=== PATIENT | female | born 1975 | race Caucasian/White ===

== ENCOUNTER 2017-06-24 13:52 | Emergency (ER) | payer BC ==
[2017-06-24 14:12] VITALS: BP 142/63
--- NOTE | 2017-06-24 14:43 | EDM.PDOC ---
ED HPI GENERAL MEDICAL PROBLEM - General Chief Complaint: ENT Problem Stated Complaint: PAIN IN BOTH EARS Time Seen by Provider: 06/24/17 14:09 Source of Information: Reports: Patient History Limitations: Reports: No Limitations - History of Present Illness INITIAL COMMENTS - FREE TEXT/NARRATIVE: History of present illness: []Patient was seen in [facility] last week for severe ear pain and dizziness. She was treated with antibiotics and meclizine for vertigo and told to follow-up with ENT. She called Dr. Moseley's office this morning and was told to get a hearing test first before being. Patient's ear pain and vertigo continues. Review of systems: As per history of present illness and below otherwise all systems reviewed and negative. Past medical history: As per history of present illness and as reviewed below otherwise noncontributory. Surgical history: As per history of present illness and as reviewed below otherwise noncontributory. Social history: No reported history of drug or alcohol abuse. Family history: As per history of present illness and as reviewed below otherwise noncontributory. Physical exam: General: Well developed, well nourished in NAD HEENT: Atraumatic, normocephalic, pupils reactive, negative for conjunctival pallor or scleral icterus, mucous membranes moist, throat clear, neck supple, nontender, trachea midline. Left TM with perforation without erythema or blood, right TM normal there is clear fluid with bubbles noted behind both TMs. Lungs: Clear to auscultation, breath sounds equal bilaterally, chest nontender. Heart: S1S2, regular, negative for clicks, rubs, or JVD. Abdomen: Soft, nondistended, nontender. Negative for masses or hepatosplenomegaly. Negative for costovertebral tenderness. Pelvis: Stable nontender. Genitourinary: Deferred. Rectal: Deferred. Extremities: Atraumatic, negative for cords or calf pain. Neurovascular unremarkable. Neuro: Awake, alert, oriented. Cranial nerves II through XII unremarkable. Cerebellum unremarkable. Motor and sensory unremarkable throughout. Exam nonfocal. Diagnostics: [] Therapeutics: [] Impression: []Perforation TM on left Plan: []Flonase, Sudafed, continue meclizine for vertigo return if symptoms worsen or change or follow-up with PMD Definitive disposition and diagnosis as appropriate pending reevaluation and review of above. Ear Pain Score (Numeric/FACES): 10 - Related Data Allergies Allergy/AdvReac Type Severity Reaction Status Date / Time No Known Allergies Allergy Verified 06/24/17 14:12 Home Meds: Home Meds Amoxicillin [Amoxil] 1,000 mg PO TID 06/24/17 [History] Fluticasone Propionate [Flonase] 0 gm NASBOTH DAILY #1 bottle 06/24/17 [Rx] Meclizine [Antivert] 12.5 mg PO TID 06/24/17 [History] Ofloxacin [Floxin 0.3% Otic Soln] 5 drop EARBOTH BID 06/24/17 [History] Pseudoephedrine [Sudogest] 30 mg PO Q6H PRN #20 tablet 06/24/17 [Rx] Past Medical History - Past Health History Medical/Surgical History: Denies Medical/Surgical History Genitourinary History: Reports: None [employer] History: Reports: Musculoskeletal History: Reports: Back Pain, Chronic Other Musculoskeletal History: herniated disc Neurological History: Reports: Vertigo - Infectious Disease History Infectious Disease History: Reports: Chicken Pox - Past Surgical History HEENT Surgical History: Reports: Adenoidectomy, Myringotomy w Tube(s) Female Surgical History: Reports: Section Musculoskeletal Surgical History: Reports: None Social & Family History - Family History Family Medical History: Noncontributory - Tobacco Use Smoking Status *Q: Never Smoker Second Hand Smoke Exposure: No - Caffeine Use Caffeine Use: Reports: Coffee, Tea Caffeine Use Comment: at least 1-2drinks each/day - Recreational Drug Use Recreational Drug Use: No ED ROS ENT - Review of Systems Review Of Systems: See Below (See history of present illness) ED EXAM, ENT - Physical Exam Exam: See Below (See history of present illness) Course - Vital Signs Last Recorded V/S: Last Vital Signs Temp 36.8 C 06/24/17 14:09 Pulse 91 06/24/17 14:09 Resp 18 06/24/17 14:09 BP 142/63 H 06/24/17 14:09 Pulse Ox 99 06/24/17 14:09 Departure - Departure Time of Disposition: 14:43 Disposition: Home, Self-Care 01 Condition: Good Clinical Impression: Vertigo Ear pain Qualifiers: Laterality: bilateral Qualified Code(s): H92.03 - Otalgia, bilateral - Discharge Information Prescriptions: Fluticasone Propionate [Flonase] 0 gm NASBOTH DAILY #1 bottle Pseudoephedrine [Sudogest] 30 mg PO Q6H PRN #20 tablet PRN Reason: Congestion Referrals: PCP,None [Primary Care Provider] - Forms: ED Department Discharge Additional Instructions: The following information is given to patients seen in the emergency department who are being discharged to home. This information is to outline your options for follow-up care. We provide all patients seen in our emergency department with a follow-up referral. The need for follow-up, as well as the timing and circumstances, are variable depending upon the specifics of your emergency department visit. If you don't have a primary care physician on staff, we will provide you with a referral. We always advise you to contact your personal physician following an emergency department visit to inform them of the circumstance of the visit and for follow-up with them and/or the need for any referrals to a consulting specialist. The emergency department will also refer you to a specialist when appropriate. This referral assures that you have the opportunity for follow-up care with a specialist. All of these measure are taken in an effort to provide you with optimal care, which includes your follow-up. Under all circumstances we always encourage you to contact your private physician who remains a resource for coordinating your care. When calling for follow-up care, please make the office aware that this follow-up is from your recent emergency room visit. If for any reason you are refused follow-up, please contact the [facility] at and asked to speak to the emergency department charge nurse. Tamia as directed follow-up with primary care [facility] [address] [place] [id number]
== END 2017-06-24 14:53 | disposition home or self-care (01) ==
LOC: MW.ED 13:52
DX: H72.92 Unspecified perforation of tympanic membrane, left ear (principal); H92.03 Otalgia, bilateral; R42 Dizziness and giddiness; Z96.22 Myringotomy tube(s) status; Z98.890 Other specified postprocedural states; Z79.899 Other long term (current) drug therapy
CPT/HCPCS: 99282